=== PATIENT | female | born 1990 | race Caucasian/White ===

== ENCOUNTER 2021-09-16 19:02 | Emergency (ER) | payer OTHER ==
[2021-09-16 20:31] LABS: BASOPHIL 0.8 % (0-2); EOSINOPHIL 1.3 % (0-5); HCT 45.6 % (37.0-47.0); HGB 15.7 g/dl (12.5-16.0); LYMPHOCYTE 30.8 % (15-48); MCH 31.5 pg (25.0-31.0); MCHC 34.4 g/dL (32.0-36.0); MCV 91.4 fL (78.0-100.0); MONOCYTE 9.8 % (0-12); MPV 9.5 fL (6.0-9.5); NRBC 0; PLT 328 K/uL (150-400); RBC 4.99 M/uL (4.20-5.40); RDW 12.3 % (11.5-14.0); WBC 9.5 K/uL (4.0-10.5)
[2021-09-16 20:39] LABS: BILIRUBIN NEGATIVE (NEGATIVE); BLOOD NEGATIVE Ery/uL (NEGATIVE); CLARITY CLEAR (CLEAR); COLOR YELLOW (YELLOW); GLUCOSE (U) NORMAL (NORMAL); LEUKOCYTES NEGATIVE Leu/uL (NEGATIVE); NITRITE NEGATIVE (NEGATIVE); PROTEIN NEGATIVE (NEGATIVE); SPECIFIC GRAVITY <=1.005 (1.001-1.030); UROBILINOGEN 0.2 mg/dL (0.2-1.0); pH 6.5 (5.0-9.0)
[2021-09-16 20:42] LABS: ALBUMIN 3.9 g/dL (3.4-5.0); BILIRUBIN - TOTAL 0.4 mg/dL (0.2-1.0); BUN/CREAT RATIO (CALC) 14.3 RATIO; CREATININE 0.7 mg/dL (0.51-0.95); GLOBULIN (CALCULATION) 3.8 g/dL; POTASSIUM 3.5 mmol/L (3.5-5.1); TOTAL PROTEIN 7.7 g/dL (6.4-8.2)
[2021-09-16] MEDS ORDERED: METRONIDAZOLE500 MG PO (22:22)
[2021-09-16] MEDS ORDERED: CIPRO500 MG PO (22:22)
[2021-09-16] MEDS ORDERED: BENTYL10 MG PO (22:22)
== END 2021-09-16 23:06 | disposition home or self-care (01) ==
LOC: FER 19:02
PROVIDERS: Internal Medicine
DX: K52.9 Noninfective gastroenteritis and colitis, unspecified (principal)
CPT/HCPCS: 36415; 80053; 81003; 84145; 85025; Q9967